=== PATIENT | female | born 1955 | race Caucasian/White ===

== ENCOUNTER 2024-11-23 06:08 | Day surgery (SDC) | payer MEDICARE, OTHER ==
--- NOTE | 2024-11-18 15:18 | ELECTROCARDIOGRAPH REPORT ---
[facility] Test Date: 2024-11-18 Test Time: 15:17:09 Pat Name: [address] Department: [facility]-PRE-OP Patient ID: [id number] Room: Gender: F Molder Fitting: pari : 1955 Requested By: SAMSON GAY Order Number: [id number] Reading MD: Dr. VAMSHI Carter Measurements Intervals [place] Rate: 75 P: 79 NE: 153 QRS: 80 QRSD: 89 T: 52 QT: 393 QTc: 439 Interpretive Statements Sinus rhythm Right atrial enlargement Electronically Signed On 11-18-2024 16:29:[address] VAMSHI Carter Please click the below link to view image of tracing.
[2024-11-18 15:36] LABS: MEAN PLATELET VOLUME 9.0 FL (7.4-10.4); PRE OP HEMATOCRIT 45.3 % (35.0-45.0); PRE OP HEMOGLOBIN 15.1 g/dL (12.0-16.0); PRE OP PLATELET COUNT 239 X10'3 (140-440); PRE OP WHITE BLOOD COUNT 7.4 10'3 (4.8-10.8); RED CELL DISTRIBUTION WIDTH 13.0 % (11.5-14.5)
[2024-11-18 15:53] LABS: CREATININE 0.88 MG/DL (0.40-0.90); PRE OP ALT 19 U/L (30-65); PRE OP ANION GAP 6 (8-16); PRE OP AST 19 U/L (10-37); PRE OP BILIRUB, TOTAL 0.3 MG/DL (0.0-1.0); PRE OP GLUCOSE 90 MG/DL (70-104); PRE OP POTASSIUM 3.6 MMOL/L (3.4-5.1); PRE OP SODIUM 143 MMOL/L (135-145); TOTAL CARBON DIOXIDE 31.3 MMOL/L (24-32); eGFR 64 ML/MIN
[2024-11-23] VITALS (11 sets, daily range): BP systolic 126–142; BP diastolic 60–80; PULSE 50–74; RESP 14–17; TEMP 98.3; O2SAT 95–100
[~2024-11-23] VITALS: Ht 160 cm; Wt 55.0 kg
[2024-11-23] MEDS: ringers solution, lacted 1,000 ML IV SCH (05:30)
[~2024-11-23 06:08] MED LIST: CALC-159 PO; CHOL100046 PO; FLUC200T93 PO; LEVO75TA7 PO
[2024-11-23] MEDS: ceFAZolin 2gm/dext,iso 50mL 50 ML IV ONE (06:28)
[2024-11-23] MEDS ORDERED: BUPIVAcaine 2.5mg/ml inj 50ml vial (contains preservative) ONE (06:46)
[2024-11-23] MEDS ORDERED: LIDOcaine 1% 30ml preserv. free vial ONE (06:47)
[2024-11-23] MEDS ORDERED: methylene blue (5mg/ml) 50mg/10ml ampul IV ONE (06:48)
[2024-11-23] MEDS ORDERED: BUPIVACAINE liposomal/PF 13.3 MG/ML 10mL vial IM ONE (06:49)
[2024-11-23] MEDS ORDERED: acetaminophen 1,000mg/100ml IV 100 ML IV PRN (08:10)
[2024-11-23] MEDS ORDERED: ondansetron/PF 4mg/2ml inj IV PRN (08:10)
[2024-11-23] MEDS ORDERED: ringers solution, lacted 1,000 ML IV SCH (08:10)
[2024-11-23] MEDS ORDERED: HYDROmorphone/PF 0.2 MG/ML SYRINGE IV PRN (08:10)
[2024-11-23] MEDS ORDERED: morphine 4 MG/ML inj SYRINge IV PRN (08:10)
[2024-11-23] MEDS ORDERED: labetalol 20mg/4ml (5mg/ml) syringe IV PRN (08:10)
[2024-11-23] MEDS ORDERED: hydrALAZINE 20mg/ml inj. IV PRN (08:10)
[2024-11-23] MEDS ORDERED: fentaNYL/PF 50MCG/1 ML 2ML syringe ONE (08:17)
[2024-11-23] MEDS ORDERED: midazolam 1 mg/ML 2ml injection ONE (08:17)
[2024-11-23] MEDS: LIDOcaine 1% 30ml preserv. free vial IJ ONE (08:46)
[2024-11-23] MEDS: BUPIVAcaine 0.5% inj/PF 30 ml vial IJ ONE (08:46)
[2024-11-23] MEDS: BUPIVACAINE liposomal/PF 13.3 MG/ML 10mL vial IM ONE (08:47)
[2024-11-23] MEDS ORDERED: 0.9 % SODIUM CHLORIDE 10 ML VIAL ONE (09:28)
[2024-11-23] MEDS ORDERED: propofol inj 20 ML IV ONE (09:28)
[2024-11-23] MEDS ORDERED: ePHEDrine 50MG/ML INJ. ONE (09:29)
[2024-11-23] MEDS ORDERED: LIDOcaine 2% (20mg/ml) 5ml vial ONE (09:29)
[2024-11-23] MEDS ORDERED: ondansetron/PF 4mg/2ml inj ONE (09:29)
[2024-11-23] MEDS ORDERED: dexamethasone sod phosphate 4mg/ml inj. ONE (09:29)
--- NOTE | 2024-11-23 09:48 | OPERATIVE REPORT ---
Operative Report Providers to CC: SAMSON GAY DO ~ Date of Procedure: Nov 23, 2024 Pre-Operative Diagnosis: Right breast cancer Post-Operative Diagnosis SAME as PRE-Op Procedure Performed 1. Right breast wireless (pintuition) localized lumpectomy 2. Reading/interpretation of specimen radiograph Surgeon: Dr. Samson Gay Bottle Blower Agnes Degroot PA-C Anesthesiologist: Benny Cevallos Type of Anesthesia: General Findings: pintuition tracker and clip seen on specimen radiograph Complications None Estimated Blood Loss: Less than 1 mL Specimen Removed: Right breast wire localized lumpectomy oriented short stitch superior long lateral double deep Description of Procedure: [place] is a 69-year-old female who was diagnosed with right breast cancer in the upper inner quadrant. She was seen and evaluated in the office and based on our discussion about the surgical options she decided to have breast conservation. I explained the risks and benefits to the surgery, the surgery in detail, and the potential complications related to surgery. Informed consent w as obtained. I marked her right breast with my initials in the preoperative holding area this morning. She was also evaluated by the anesthesiologist. She had an IV placed, SCDs to lower extremities, and antibiotics hanging at the bedside. Those antibiotics were administered prior to the cut of surgery. She was taken to the OR and placed on the table in supine position with the arms extended. General anesthesia was administered with an LMA. I scanned the right breast in the upper inner quadrant with the pintuition probe. The signal was detected approximately 2-3 o'clock upper inner quadrant 4-5 cm from the nipple. The skin was marked with a marking pen. The patient was prepped and draped in a sterile fashion a time-out was performed and agreed upon. I made a proposed incision in the upper inner quadrant with a marking pen. 1% lidocaine was injected at the site. My incision was made with a 15 blade. I further extended the incision through the deep dermal layer with the cutting on the cautery. Se nn retractors were placed in the edges of the cavity. I dissected further into the breast tissue around the detected signal. I changed to the Pierre retractors and dissected in a circumferential fashion down to the chest wall. I used the pintuition probe to guide my dissection. Once the specimen was completely excised. It was removed from the cavity and oriented with short stitch superior, long suture lateral, double suture deep and placed in the specimen radiograph board. It was subsequently placed in the specimen radiograph machine where two views were taken and identified the tracker and the clip. They were both in good position. The specimen was placed in formalin in preparation for permanent evaluation by the pathologist. The cavity was helicopter pilot iously irrigated. Hemostasis was achieved with Bovie electrocautery. I dissected down to the muscle. The breast tissue was approximated with 3-0 iliana Vicryl suture and the skin was closed with 3-0 Vicryl suture and a 4-0 Monocryl running subcuticular stitch. The skin was cleaned and dried. The Prineo Dermabond dressing was placed over the incision after Exparel 0.25% Marcaine mix was injected at the site. Sterile dressings were applied and a breast binder was placed on the patient. She was taken to recovery in stable condition without complication. Counts repoted as correct: Yes SAMSON GAY DO Nov 23, 2024 09:48
[2024-11-23] MEDS: HYDROmorphone/PF 0.2 MG/ML SYRINGE IV PRN (10:22)
== END 2024-11-23 10:59 | disposition home or self-care (01) ==
LOC: PAS 06:08
PROVIDERS: ATTEND Surgery
DX: C50.211 Malignant neoplasm of upper-inner quadrant of right female breast (principal); E03.9 Hypothyroidism, unspecified; Z79.899 Other long term (current) drug therapy; Z98.890 Other specified postprocedural states; Z88.6 Allergy status to analgesic agent
CPT/HCPCS: 19125; 36415; 76098; 80053; 82948; 85025; 88307; 93005; A4215; A4618; A6258; A7000; J0665; J0666; J1100; J1171; J2003; J2250; J2405; J2704; J3010; J3490; J7030; J7120; Q9968; Z7506; Z7508; Z7512; Z7610